=== PATIENT | female | born 1965 | race Caucasian/White ===

== ENCOUNTER → 2018-02-12 10:47 | Outpatient (CLI) | payer OTHER, SELFPAY ==
--- NOTE | 2018-02-12 | DI.RAD.S_ITS ---
PROCEDURE: XR LUMBAR SPINE 2-3V INDICATIONS: LOW BACK PAIN TECHNIQUE: 2 views of the lumbar spine were acquired. COMPARISON: None. FINDINGS: Bones: 5 [id number] vertebrae are present. There is grade I L3 on L4 anterolisthesis. No vertebral body compression fractures. No suspicious bony lesions. Degenerative changes including intervertebral disc space narrowing, osteophytosis and facet sclerosis are present throughout the lower lumbar spine. Soft tissues: Overlying bowel gas pattern is normal. No suspicious soft tissue calcifications. Surgical clips are present in the gallbladder fossa. IMPRESSION: Degenerative change and trace L3-4 anterolisthesis. Dictated by: Olga Bee M.D. on 02/12/2018 at 15:08 Approved by: Olga Bee M.D. on 02/12/2018 at 15:09
== END ==
DX: M54.5 Low back pain (principal); M48.061 Spinal stenosis, lumbar region without neurogenic claudication
CPT/HCPCS: 72100